=== PATIENT | female | born 1980 | race Caucasian/White ===

== ENCOUNTER → 2019-10-18 14:51 | Outpatient (CLI) | payer SELFPAY | END | disposition home or self-care (01) | LOC: EDBD 14:51 → D.LDO 14:51 | PROVIDERS: ATTEND Student in an Organized Health Care Education/Training Program | DX: O35.9XX0 Maternal care for (suspected) fetal abnormality and damage, unspecified, not applicable or unspecified (principal) ==

== ENCOUNTER → 2019-10-25 13:39 | Outpatient (CLI) | payer BC | END | disposition home or self-care (01) | LOC: D.LDO 13:39 | PROVIDERS: ATTEND Student in an Organized Health Care Education/Training Program | DX: O24.419 Gestational diabetes mellitus in pregnancy, unspecified control (principal); Z3A.37 37 weeks gestation of pregnancy ==

== ENCOUNTER → 2019-11-01 13:53 | Outpatient (CLI) | payer BC ==
[~2019-11-01 13:53] MED LIST: GLUCOPHAGE500 MG PO
== END | disposition home or self-care (01) ==
LOC: D.LDO 13:53
PROVIDERS: ATTEND Student in an Organized Health Care Education/Training Program
DX: O24.419 Gestational diabetes mellitus in pregnancy, unspecified control (principal); Z3A.34 34 weeks gestation of pregnancy

== ENCOUNTER 2019-11-27 00:22 | Outpatient (CLI) | payer BC ==
[2019-11-27 14:40] VITALS: BMI 42.0
== END 2019-11-27 03:05 | disposition home or self-care (01) ==
LOC: D.LDO 00:22
PROVIDERS: ATTEND Obstetrics & Gynecology
DX: O24.913 Unspecified diabetes mellitus in pregnancy, third trimester (principal); Z3A.38 38 weeks gestation of pregnancy

== ENCOUNTER 2019-11-27 07:35 | Inpatient (IN) | payer BC ==
[~2019-11-27] VITALS: Ht 167.6 cm; Wt 117.9 kg
[2019-11-27 12:04] LABS: HEMATOCRIT 34.3 % (36.0-48.0); MCH 26.7 pg (26.0-34.0); MCHC 32.1 g/dL (31.0-37.0); MCV 83.3 fL (80.0-100.0); MEAN PLATELET VOLUME 9.2 fL (7.4-10.4); RBC 4.12 10x6/uL (4.00-5.40); RDW 15.6 % (11.5-14.5); WBC 10.7 10x3/uL (4.8-10.8)
[2019-11-27 13:23] LABS: BILIRUBIN NEGATIVE (NEGATIVE); GLUCOSE NEGATIVE (NEGATIVE); KETONE NEGATIVE (NEGATIVE); NITRITE NEGATIVE (NEGATIVE); SPECIFIC GRAVITY 1.005 (1.005-1.020); UROBILINOGEN NORMAL (NORMAL)
[2019-11-27 13:28] LABS: BACTERIA FEW /hpf (NEGATIVE); EPITHELIAL CELLS 0-5 /hpf (0-5); RED CELLS - URINE 0-5 /hpf (0-5); WHITE CELLS - URINE 0-5 /hpf (NEGATIVE)
[2019-11-27 14:40] VITALS: Ht 167.6 cm; Wt 117.9 kg
--- NOTE | 2019-11-28 07:48 | NUR ---
ASSUMED CARE OF THIS PATIENT AT THIS TIME. U/2 MASSAGED TO FIRM. MOD BLEEDING NOTED ON YAMILETH-PAD X 1, REPLACED YAMILETH-PAD WITH TWO YAMILETH-PADS. WEIGHT OF CHUX AND FOUR YAMILETH-PADS USED SINCE DELIVERY WAS 170 ML BLOOD LOSS. CHRISTIANSEN ADJUSTED WITH IMMEDIATE RETURN OF 400 ML DARK YELLOW URINE. ICE PACK PLACED OVER INCISION. INSTRUCTED ON USE OF INCENTIVE SPIROMETER. USED X 3 FOLLOWED BY WEAK COUGH. INSTRUCTED ON SPLINTING ABD WITH COUGH. INFANT IN NURSERY. PLANS TO BREASTFEED INFANT. NON SMOKER. 0+ RUBELLA IMMUNE. SCDS IN PLACE, ADJUSTED SCDS AFTER SKIN INSPECTION. DISCUSSED PLAN OF CARE FOR THE DAY. ANTICIPATE NORMALIZATION AT 8 HOURS. VERBALIZED UNDERSTANDING.
--- NOTE | 2019-11-28 09:18 | NUR ---
SITTING UP IN BED. DENIES NEEDING ANYTHING. FOB AND IN ROOM. SIDERAILS UP X 2, CALL LIGHT IN REACH. RUBRA SMALL, CLEAN YAMILETH-PAD PLACED X 1.
--- NOTE | 2019-11-28 10:19 | NUR ---
PERCOCET 10 MG GIVEN PO FOR RELIEF OF 4/10 INCISIONAL PAIN AFTER DISCUSSING PAIN MANAGEMENT OPTIONS. PT OPTED FOR 10 MG TAB THIS TIME BECAUSE IT IS FIRST PO PAIN MEDICATION SINCE C/S. U/2 FIRM, MIDLINE, RUBRA SCANT, LEFT ONE PAD IN PLACE. ICE WATER AND GRAPE JUICE GIVEN. WILL DC CHRISTIANSEN AND IV FLUIDS. DISCUSSED CARE. VERBALIZED UNDERSTANDING. FOB IN ROOM HOLDING INFANT IN ARMS.
--- NOTE | 2019-11-28 10:30 | NUR ---
IV FLUIDS DC'S. SALINE LOCK FLUSHED. CHRISTIANSEN CATH DC'D WITH TOTAL 800 ML DARK YELLOW URINE. ENCOURAGED TO DRINK PLENTY OF WATER THROUGHOUT THE DAY TO SUPPORT URINARY FUNCTION AND . FRESH WATER GIVEN, GRAPE JUICE AT BEDSIDE. POSITIONED TO LEFT SIDE WITH PILLOWS. DISCUSSED IMPORTANCE OF POSITION CHANGES WHILE IN BED. ANTICIPATE OOB IN FOUR HOURS OR WHEN READY TO GET UP TO VOID OR SOONER. FOB AND IN ROOM. CALL LIGHT IN REACH. TO CALL IF ANYTHING IS NEEDED. RUBRA REMAINS SCANT.
--- NOTE | 2019-11-28 11:43 | NUR ---
LAYING TOWARD LEFT SIDE TALKING TO VISITORS. SAYS HER PAIN IS BETTER. NOW 12/13. DENIES NEEDING ANYTHING. AND FOB IN ROOM. WAITING ON LUNCH. WILL DO 1 HOUR PP FSBS AFTER EATING. SIDERAILS UP X 2, CALL LIGHT IN REACH.
--- NOTE | 2019-11-28 11:46 | NUR ---
PT HAS BEEN USING INCENTIVE SPIROMETER HOURLY. SCD'S CHECKED AND FUNCTIONING, HOSE WAS INITIALLY KINKED.
--- NOTE | 2019-11-28 13:35 | NUR ---
FINISHED EATING LUNCH. 1 HR PP WILL BE DONE AT 1350. TALKING TO VISITORS. NO REQUESTS.
--- NOTE | 2019-11-28 13:56 | NUR ---
INFANT. FSBS 152. INFORMED BS WILL BE REPEATED AFTER DINNER AND IN AM. VERBALIZED UNDERSTANDING. NO CURRENT REQUESTS. WILL GET UP TO AMBULATE AFTER . SIDERAILS UP X 2, CALL LIGHT IN REACH.
--- NOTE | 2019-11-28 14:56 | NUR ---
UP TO VOID- VOIDED 200 ML. TOLERATED AMBULATION WITHOUT DIFFICULTY. NO C/O DIZZINESS. DESIRED TO SHOWER AT THAT TIME. SHOWER COMPLETED. LTCS DRESSING REMOVED WHILE IN SHOWER. HEBICLEANSE USED ON ABDOMEN AND INCISION SITE BY PT. INSTRUCTED ON INCISION CARE. ASSISTED PT WITH DRYING AFTER SHOWER. INCISION SITE INTACT WITH SALEEM, NO DRAINAGE OR ERRYTHEMA NOTED. YAMILETH-PAD PLACED OVER INCISION. INSTRUCTED TO CHANGE EVERYTIME SHE GOES TO BR. VERBALIZED UNDERSTANDING. CLEAN YAMILETH-PANTS AND YAMILETH-PADS X 2 PLACED. RETURNED TO EDGE OF BED. DESIRES TO WAIT ON AMBULATION IN [place]. INFANT CURRENTLY IN NURSERY. REQUESTED PAIN MEDICATION FOR 4/10 INCISIONAL BURNING. PERCOCET 10 MG GIVEN AFTER DISCUSSING PAIN MANAGEMENT OPTIONS INCLUDING 5 MG TABLET. DESIRES THE 10 MG TAB AT THIS TIME. VISITORS SHOWED UP AFTER SHOWER COMPLETED AND ASSISTING PT WITH HAIR CARE. FRESH ICE PACK GIVEN. WILL REPLACE SCDS WHEN PT READY TO GO BACK TO BED. TO CALL IF ANYTHING IS NEEDED.
--- NOTE | 2019-11-28 18:05 | NUR ---
SITTING UP IN BED. DENIES PAIN. RUBRA SCANT. VS OBTAINED. INFANT AND VISITORS IN ROOM. DECLINED SCD'S AT THIS TIME. REMINDED TO MOVE LEGS AROUND FREQUENTLY. PLANS AMBULATION IN [place] WHEN RETURN. ENCOURAGED TO USE SCD'S TONIGHT WHILE SLEEPING. VERBALIZED UNDERSTANDING. ICE PACK PRESENT OVER GOWN OVER INCISION. SAYS SHE HAS BEEN USING INCENTIVE SPIROMETER HOURLY INSTRUCTION. NO QUESTIONS OR REQUESTS AT THIS TIME. SIDE RAILS UP X 2, CALL LIGHT IN REACH.
--- NOTE | 2019-11-28 20:00 | NUR ---
Patient assessment completed, LTV abdominal incision with praveen dry and intact. FF ML at U lochia small rubra, voiding with out difficulty, family present, good well, no signs of distress
--- NOTE | 2019-11-28 21:04 | NUR ---
Patient request pain medication, percocet 10 mg po for pain scale 5/10 cramping, patient up walking in room
--- NOTE | 2019-11-28 21:10 | NUR ---
walking in room. family present, Bonding well,
--- NOTE | 2019-11-28 22:15 | NUR ---
Sitting up in bed feeding baby, denies needs
--- NOTE | 2019-11-28 23:05 | NUR ---
sitting up in bed rocking baby, denies needs, SR up x2 and call light in reach
--- NOTE | 2019-11-29 00:02 | NUR ---
resting but awake, states baby is nursing well, denies needs, pain scale 0
--- NOTE | 2019-11-29 01:05 | NUR ---
asleep with at bedside, SR up x2 call light in reach
--- NOTE | 2019-11-29 02:02 | NUR ---
sleeping with HOB at 45 degree, at bedside, SR up and call light in reach
--- NOTE | 2019-11-29 03:05 | NUR ---
RESTING, BABY IN CRIB AT BEDSIDE, DENIES NEEDS. CALL LIGHT IN REACH
--- NOTE | 2019-11-29 04:15 | NUR ---
awake, baby awake in crib, FOB up tending to baby, pain scale 0/10, denies needs
--- NOTE | 2019-11-29 05:20 | NUR ---
dozing, easily awakened, denies needs, voiding without difficulty, call light in reach
--- NOTE | 2019-11-29 06:35 | NUR ---
awake with baby for feeding. denies needs
[2019-11-29 07:06] LABS: HEMATOCRIT 29.8 % (36.0-48.0); HEMOGLOBIN 9.5 g/dL (12-16); MCH 26.5 pg (26.0-34.0); MCHC 31.9 g/dL (31.0-37.0); MEAN PLATELET VOLUME 8.8 fL (7.4-10.4); RBC 3.59 10x6/uL (4.00-5.40); WBC 10.5 10x3/uL (4.8-10.8)
--- NOTE | 2019-11-29 08:20 | NUR ---
DR MONGE TO ROOM FOR ROUNDING, NO NEW ORDERS RECEIVED.
--- NOTE | 2019-11-29 08:55 | NUR ---
THIS RN TO ROOM FOR SHIFT ASSESSMENT. PT SITTING UP ON BEDSIDE COUCH, . FAMILY MEMBER ON BEDSIDE COUCH WITH PT. PT DENIES PAIN, ICE WATER GIVEN PER REQUEST WELL PERIPADS IN BATHROOM. PT DENIES FURTHER NEEDS AT THIS TIME. WILL RETURN FOR SHIFT ASSESSMENT AFTER PT HAS FINISHED .
--- NOTE | 2019-11-29 09:53 | NUR ---
THIS RN TO ROOM FOR SHIFT ASSESSMENT AND SCHEDULED TORADOL ADMIN. PT RESTING IN BED ON LEFT SIDE, HOB 30 DEGREES, SRUx2. PT ALERTS THIS RN ENTERS ROOM. PT DENIES ANY PAIN. TORADOL ADMIN ORDERED, SEE EMAR FOR DOC. PT DENIES ANY CONCERNS WITH HEAVY LOCHIA, INSTRUCTED ON S/S TO REPORT, UNDERSTANDING VERBALIZED. FF, ML, U/. SMALL RUBRA LOCHIA, NO CLOTS. LOW TRANSVERSE ABD INCISION IS C/D WITH SALEEM INTACT, NO DRAINAGE. PT DENIES NAUSEA, REPORTS PASSING GAS. 2+ EDEMA NOTED TO LE BILAT, NON PITTING. PEDAL PULSES 2+ BILAT, NEG HOMANS SIGN BILAT. PT INSTRUCTED ON S/S TO REPORT REGARDING DVT. PT DENIES ANY DIZZINESS WITH AMBULATION. RIGHT HAND PIV REMOVED NO LONGER INDICATED. PRESSURE HELD AND BANDAID APPLIED. PT DENIES ANY NEEDS OR CONCERNS AT THIS TIME. SRUx2, CL IN REACH. LIGHTS IN ROOM LEFT DIM FOR REST. FAMILY MEMBER ON BEDSIDE COUCH. WILL CONT TO MONITOR.
--- NOTE | 2019-11-29 12:18 | NUR ---
THIS RN TO ROOM FOR PT CHECK. PT LYING IN BED, SUPINE WITH LEFT TILT. WATCHING TV, DENIES PAIN OR ANY NEEDS. SRUx2, CL IN REACH. VISITOR ON BEDSIDE COUCH.
--- NOTE | 2019-11-29 14:28 | NUR ---
PT UP AMBULATING IN HALLS, DENIES PAIN OR ANY NEEDS. AMBULATES WITH STEADY GAIT. WILL CONT TO MONITOR.
--- NOTE | 2019-11-29 15:53 | NUR ---
THIS RN TO ROOM FOR TORADOL ADMIN. PT SITTING ON BEDSIDE COUCH, . PT ADMIN TORADOL ORDERED, SEE EMAR FOR DOC. WILL RETURN WHEN PT FINISHES FOR VS CHECK. PT DENIES NEEDS. WILL CONT TO MONITOR.
--- NOTE | 2019-11-29 16:07 | NUR ---
PT UP AMBULATING IN HALLS TO ICE MACHINE, DENIES NEEDS.
--- NOTE | 2019-11-29 16:26 | NUR ---
VS OBTAINED AND NOTED TO BE STABLE, SEE FLOWSHEET FOR DOC. PT SITTING ON BEDSIDE COUCH HOLDING INFANT, DENIES PAIN OR NEEDS. BED LINENS CHANGED. FANS DELIVERS DINNER TRAY. PT FAMILY TO ROOM AT THIS TIME. WILL CONT TO MONITOR.
--- NOTE | 2019-11-29 19:14 | NUR ---
C/O BACK ACHE AND SOME CRAMPING, PERCOCET 5/325 FOR DISCOMFORTS. FUNDUS FIRM MIDLINE, SCANT RUBRA LOCHIA, VOIDING WITHOUT DIFFICULTY
--- NOTE | 2019-11-29 21:00 | NUR ---
WALKING AROUND IN ROOM, FAMILY PRESENT, BABY SLEEPING IN CRIB, DENIES NEEDS
--- NOTE | 2019-11-29 22:00 | NUR ---
EATING SNACK, FAMILY AT BEDSIDE AND DENIES NEEDS
--- NOTE | 2019-11-29 22:50 | NUR ---
PT TRANSFERRED VIA AMB TO [facility] ROOM 1218 PER FRANCI YAN RN AND THOR THOMAS RN
--- NOTE | 2019-11-29 23:00 | NUR ---
RECEIVED REPORT FROM MICHAEL SHEPHERD
--- NOTE | 2019-11-29 23:15 | NUR ---
PT LAYING IN BED INFANT, PT DENIES NEEDS OR PAIN AT THIS TIME, BED IN LOW POSITION, SIDE RAILS X 2, CALL LIGHT IN REACH, FOB AT BEDSIDE
--- NOTE | 2019-11-30 00:15 | NUR ---
PT SITTING UP ON SIDE OF BED FILLING OUT NSY PAPERWORK, VS OBTAINED, PT DENIES NEEDS OR PAIN AT THIS TIME, CALL LIGHT IN REACH, FOB ASLEEP AT BEDSIDE
--- NOTE | 2019-11-30 02:25 | NUR ---
PT AWAKE, HOLDING INFANT, DENIES NEEDS OR PAIN AT THIS TIME, FOB ASLEEP AT BEDSIDE
--- NOTE | 2019-11-30 04:24 | NUR ---
PT RESTING WITH EYES CLOSED, AROUSES TO SOFT VERBAL STIMULATION, VS OBTAINED, ADM TORADOL PO PER MD ORDERS, SEE EMAR, WITH FRESH H20, PT DENIES FURTHER NEEDS, IN OPEN CRIB CART AND FOB ASLEEP AT BEDSIDE
[2019-11-30 06:09] LABS: RAPID PLASMA REAGIN Non Reactive (Non Reactive)
--- NOTE | 2019-11-30 06:10 | NUR ---
PT RESTING WITH EYES CLOSED, RESP QUIET, NO DISTRESS NOTED, LEFT UNDISTURBED AT THIS TIME, IN OPEN CRIB CART AT BEDSIDE
--- NOTE | 2019-11-30 07:00 | NUR ---
RECEIVED REPORT FROM Caitlin SANCHEZ RN. PT SITTING UP IN CHAIR, AWAKE AND ALERT. NO COMPLAINTS OR NEEDS AT THIS TIME.
[2019-11-30 07:50] VITALS: BP 129/80
--- NOTE | 2019-11-30 07:50 | NUR ---
ASSESSMENT COMPLETED. SEE FLOWSHEET.
--- NOTE | 2019-11-30 09:15 | NUR ---
DR. MONGE HERE TO SEE PT.
--- NOTE | 2019-11-30 09:30 | NUR ---
PT AMBULATING TO NURSERY TO SEE .
--- NOTE | 2019-11-30 09:58 | NUR ---
PT. RETURNED TO ROOM AMBULATORY. INQUIRED IF PATIENT WOULD LIKE PAIN MEDICATION. PT. DECLINES.
--- NOTE | 2019-11-30 11:45 | NUR ---
Printed info given about rooming in so that pt may read over and any questions can be answered.
--- NOTE | 2019-11-30 12:40 | NUR ---
called to room, pt states that family member was here and was able to go get her scripts filled. Pt given written scripts for Percocet 7.5/325mg and Motrin 800mg.
--- NOTE | 2019-11-30 14:00 | NUR ---
VERBAl AND WRITTEN ROOMING IN AND DISCHARGE INSTRUCTIONS GONE OVER WITH PT. SHE STATES HER UNDERSTANDING TO ALL INFO GIVEN INCLUDING ROOMING IN POLICY. PROVIDED WITH EXTRA TOWELS AND LINENS AND UNDERSTANDS TO CALL LABOR AND DELIVERY IF ADDITIONAL ITEMS ARE NEEDED.
--- NOTE | 2019-12-01 10:13 | MORECARE ---
CASE MANAGEMENT DISCHARGE SUMMARY PATIENT: EVERTON WARD UNIT: [id number] ADM DATE: 11/27/19 AGE: 39 : 84 SEX: F ROOM/BED: D.1218 AUTHOR: UMESH BAHENA PHYSICIAN: REFERRING PHYSICIAN: LEW MONGE MD DATE OF SERVICE: 12/01/19 Discharge Plan Patient Name[facility]ARD [facility] [facility] 1980 Planned Disposition: Home Anticipated Discharge Date: 11/30/19 Discharge Date: 11/30/2019 Expected LOS: 3 Initial Reviewer: [email or web address] Initial Review Date: 11/27/2019 Generated: 12/01/19 11:12 am Patient Name: EVERTON WARD Page [id number] at 1013 All edits/amendments must be made on the electronic document DICTATION DATE: 12/01/19 1012 UNEMPLOYMENT INSURANCE HEARING OFFICER: DOMI 12/01/19 1012 RPT#: [id number] DC DATE:11/30/19 STATUS: DIS IN [facility] [address] [place] [address] END OF REPORT
== END 2019-11-30 14:00 | disposition home or self-care (01) | DRG 788 ==
LOC: D.LDO 07:35 → D.LD 11:48 → D.WS 11-29 22:51
PROVIDERS: ADMIT Obstetrics & Gynecology; ATTEND Obstetrics & Gynecology
PROC: 10D00Z1 Extraction of Products of Conception, Low, Open Approach (ICD-10-PCS; principal; 2019-11-28)
DX: O24.429 Gestational diabetes mellitus in childbirth, unspecified control (principal); Z3A.38 38 weeks gestation of pregnancy; Z37.0 Single live birth; O36.8330 Maternal care for abnormalities of the fetal heart rate or rhythm, third trimester, not applicable or unspecified